=== PATIENT | female | born 1950 | race Caucasian/White ===

== ENCOUNTER 2020-01-04 11:42 | Emergency (ER) | payer MEDICARE, BC ==
[~2020-01-04] VITALS: Ht 157 cm; Wt 60.0 kg
--- NOTE | 2020-01-04 12:08 | ED Lower Extremity ---
General Stated Complaint: KNEE SWELLING;KNEE PAIN Source: patient Exam Limitations: no limitations History of Present Illness Date Seen by Provider: Jan 04, 2020 Time Seen by Provider: 12:05 Initial Comments to ER with reports of left knee swelling and burning type pain. This began with a popping sensation in the left knee a few days ago, a little bit of burning in the popliteal region last week. Today she went to [facility] because the pain was "over 10". She received an injection of pain medication believed to be Toradol but not known. She had some swelling to the popliteal region and burning. All no history of DVT. She takes no medications. Onset: last week Severity: moderate Pain/Injury Location: left knee Method of Injury: unknown Modifying Factors: Worse With Movement Allergies and Home Medications Allergies Coded Allergies: No Known Drug Allergies (Unverified , 01/04/20) Home Medications No Active Prescriptions or Reported Meds Patient Home Medication List Home Medication List Reviewed: Yes Review of Systems Constitutional: see HPI EENTM: see HPI Respiratory: no symptoms reported Cardiovascular: no symptoms reported Genitourinary: no symptoms reported Musculoskeletal: see HPI, joint pain Skin: no symptoms reported Psychiatric/Neurological: No Symptoms Reported Past [id number] Hx Patient Social History Recent Foreign Travel: No Contact w/Someone Who Travel: No Physical Exam Vital Signs Vital Signs - First Documented 01/04/20 12:00 Temp 36.9 Pulse 69 Resp 18 B/P (MAP) 156/86 (109) Pulse Ox 96 Capillary Refill : Height, Weight, BMI Height: '" Weight: lbs. oz. kg; BMI Method: General Appearance: WD/WN, no apparent distress Neck: non-tender, full range of motion Respiratory: no respiratory distress, no accessory muscle use Hips: bilateral hip non-tender, bilateral hip normal inspection, bilateral hip normal range of motion Legs: bilateral leg non-tender, bilateral leg normal inspection, bilateral leg normal range of motion Knees: left knee pain, left knee other (no apparent swelling at this time, no erythema no ecchymosis) Ankles: bilateral ankle non-tender, bilateral ankle normal inspection, bilateral ankle normal range of motion Feet: bilateral foot non-tender, bilateral foot normal inspection, bilateral foot normal range of motion Neurologic/Psychiatric: alert, normal mood/affect, oriented x 3 Skin: normal color, warm/dry she has a strong left posterior tibial pulse. Progress/Results/Core Measures Results/Orders My Orders Orders - ROBERT TREVINO APRN Us Venous Lower Ext Lt (01/04/20 12:02) Hydrocodone/Apap 5/325 Tablet (Lortab 5 (01/04/20 12:15) Medications Given in ED Current Medications Medications Dose Ordered Sig/Jerod Route Start Time Stop Time Status Last Admin Dose Admin Acetaminophen/ Hydrocodone Bitart 1 tab ONCE ONCE PO 01/04/20 12:15 01/04/20 12:16 DC 01/04/20 12:13 1 TAB Vital Signs/I&O 01/04/20 12:00 Temp 36.9 Pulse 69 Resp 18 B/P (MAP) 156/86 (109) Pulse Ox 96 Departure Communication (Admissions) no evidence of DVT on ultrasound according to composite bond technician. Impression Primary Impression: Knee pain Qualified Codes: M25.562 - Pain in left knee Disposition: 01 HOME, SELF-CARE Condition: Stable Departure-Patient Inst. Decision time for Depature: 13:27 Referrals: CONNIE LASSITER MD Patient Instructions: Knee Pain (DC) Add. Discharge Instructions: 1. Steroids as directed. Return to ER for any concerns. Follow-up with orthopedics for further evaluation of her left knee pain. Scripts Hydrocodone/Acetaminophen (Lorcet 5-325 mg Tablet) 1 Each Tablet 1 EACH PO Q4-6HR PRN for PAIN-MODERATE MDD 10 for 7 Days, #10 TAB Prov: ROBERT TREVINO APRN 01/04/20 Methylprednisolone (Methylprednisolone Dose Pack) 4 Mg Tab.ds.pk 4 MG PO UD for 6 Days, #21 PKG PER DOSE PACK INSTRUCTIONS Prov: ROBERT TREVINO APRN 01/04/20 ROBERT TREVINO APRN Jan 04, 2020 12:08
[2020-01-04] MEDS ORDERED: HYDROcodone/APAP 5 MG/325 MG (LORTAB) TAB PO ONE (12:15)
[2020-01-04] MEDS ORDERED: HYDR-3870 PO (13:29)
[2020-01-04] MEDS ORDERED: METH4TAB10 PO (13:29)
--- NOTE | 2020-01-04 13:42 | Diagnostic Imaging Report ---
PROCEDURE: US left lower extremity venous. TECHNIQUE: Multiple Real-time grayscale images were obtained over the left lower extremity in various projections. Additional duplex Doppler and color Doppler images were also obtained. INDICATION: Left leg pain. EXAMINATION: Grayscale and color Doppler evaluation of the deep veins of the left lower extremity were performed with waveform analysis. FINDINGS: Continuous venous flow is present. No intraluminal filling defect is identified. There is normal compressibility and response to augmentation. No abnormal perivascular fluid collection is identified. IMPRESSION: No ultrasound evidence of left lower extremity deep venous thrombosis. Dictated by: Dictated on workstation # [id number]
--- NOTE | 2020-01-04 13:57 | Diagnostic Imaging Report ---
INDICATION: Knee pain, recently started with no known injury or trauma TECHNIQUE: 3 views of the left knee CORRELATION STUDY: None FINDINGS: The joint spaces are maintained. The articular surfaces are smooth and preserved. There is no acute bony abnormality. There is some generalized bony demineralization present. Small joint effusion. IMPRESSION: 1. Negative for acute bony abnormality of the knee. Dictated by: Dictated on workstation # [id number]
[2020-01-04 14:04] VITALS: BP 156/86
== END 2020-01-04 14:05 | disposition home or self-care (01) ==
LOC: EDUNIT# 11:42 → ER 11:43
DX: M25.562 Pain in left knee (principal)
CPT/HCPCS: 73562